=== PATIENT | male | born 1930 | race Caucasian/White ===

== ENCOUNTER 2017-01-02 17:46 | Inpatient (IN) | payer MEDICARE, OTHER ==
[~2017-01-02] VITALS: Ht 175.3 cm; Wt 42.5 kg
[2017-01-02] MEDS ORDERED: MIDAZOLAM DRIP 100 mg/100mL NS 100 ML IV SCH (18:30)
[2017-01-02 18:44] LABS: Albumin 2.1 g/dL (3.4-5.0); BUN/Creatinine Ratio 36.4; Bilirubin, Total 0.4 mg/dL (0.2-1.0); Calcium 9.8 mg/dL (8.5-10.1); Potassium 3.9 mmol/L (3.5-5.1); Total Protein 7.6 g/dL (6.4-8.2)
[2017-01-02] MEDS ORDERED: cefTRIAXone 1GM/50ML D5W 50 ML IV ONE (18:45)
[2017-01-02] MEDS ORDERED: SODIUM CHLORIDE 0.9% 1,000 ML IV ONE ×2 (19:00)
[2017-01-02 19:08] LABS: Lactic Acid 9.5 mmol/L (0.4-2.0)
[2017-01-02] MEDS ORDERED: NOREPINEPHRINE BITARTRATE 250 ML IV ONE (19:12)
[2017-01-02 19:28] LABS: Basophils # (auto) 0 uL; Eosinophils # (auto) 0 uL; Eosinophils % (auto) 0.1 % (0.0-7.0); Hematocrit 36.3 % (41.0-53.0); Hemoglobin 11.5 g/dL (13.5-17.5); Lymphocytes # (auto) 1.6 uL; Lymphocytes % (auto) 12.7 % (10.0-50.0); Mean Corpuscular Hemoglobin 30.5 pg (28.0-32.0); Mean Corpuscular Hgb Conc. 31.8 g/dL (32.0-36.0); Mean Corpuscular Volume 96.1 fL (80.0-100.0); Monocytes # (auto) 0.1 uL; Neutrophils # (auto) 10.9 uL; Neutrophils % (auto) 86.2 % (37.0-80.0); Platelet Count (auto) 430 10^3/uL (140-450); Red Cell Distribution Width 14.3 % (11.6-16.0); SUSPECT VIEW TRANSMISSION; White Blood Cell 12.7 10^3/uL (4.4-10.8)
[2017-01-02] MEDS: NOREPINEPHRINE BITARTRATE 250 ML IV SCH (19:30)
[2017-01-02 19:49] LABS: REFLEX LACTIC ACID YES OR NO YES
[2017-01-02] MEDS ORDERED: PIPERACILLIN-TAZOB 3.375GM 100 ML IV ONE (20:00)
[2017-01-02 20:13] LABS: INR 1.39 (0.9-1.15); Prothrombin Time 14.3 sec (9.37-12.3)
[2017-01-02] MEDS: SODIUM CHLORIDE 0.9% 1,000 ML IV SCH (20:51)
[2017-01-02] MEDS ORDERED: MORPHINE SULF INJ 2 MG/ML SYRINGE 1ML IV PRN (21:00)
[2017-01-02] MEDS ORDERED: LACTULOSE 20Gm/30ML SOLN PO PRN (21:00)
[2017-01-02] MEDS ORDERED: NITROGLYCERIN 0.4 MG SL TAB SL PRN (21:00)
[2017-01-02] MEDS: ENOXAPARIN SOD 30 MG/0.3 ML SYRINGE SC SCH (21:00)
[2017-01-02 21:14] LABS: Lactic Acid 4.5 mmol/L (0.4-2.0)
[2017-01-02] MEDS ORDERED: DEXTROSE (50%) 50ML SYRG IV PRN (21:15)
[2017-01-02 21:37] LABS: REFLEX LACTIC ACID YES OR NO NO
[2017-01-02] MEDS: IPRATROPIUM BROM 0.5 MG/2.5ML INH SOL NEB SCH (22:00)
[2017-01-02] MEDS: ALBUTEROL SULF 2.5 MG/0.5ML(0.5%) NEB SOLN NEB SCH (22:00)
[2017-01-02 22:13] VITALS: BP 82/49
[2017-01-02 22:22] LABS: Urine Bilirubin Negative (Negative); Urine Color Yellow (Yellow); Urine Glucose Normal (Normal); Urine Hyaline Cast MOD /lpf (0 - 2); Urine Ketone Negative (Negative); Urine Mucus FEW (None Seen); Urine Nitrite Negative (Negative); Urine RBC 91 /hpf (0 - 3); Urine Squamous Epithelial Cell MOD /hpf (<5); Urine Urobilinogen Normal (Negative)
[2017-01-02] MEDS: methylPREDNISolone SOD SUCC 125 MG/2 ML VL IV SCH (22:32)
[2017-01-02 23:52] LABS: Urine Blood 2+ /uL (Negative)
[2017-01-03] VITALS (93 sets, daily range): BP systolic 66–143; BP diastolic 35–78
[2017-01-03] MEDS: InsuLIN REG 1unit/0.01ml Soln (100units/ml) SC SCH ×4 (01:40→18:57)
[2017-01-03] MEDS: ALBUTEROL SULF 2.5 MG/0.5ML(0.5%) NEB SOLN NEB SCH ×6 (02:00→22:22)
[2017-01-03] MEDS: IPRATROPIUM BROM 0.5 MG/2.5ML INH SOL NEB SCH ×6 (02:00→22:22)
[2017-01-03 03:53] LABS: Hematocrit 34.1 % (41.0-53.0); Hemoglobin 10.6 g/dL (13.5-17.5); Mean Corpuscular Hemoglobin 29.7 pg (28.0-32.0); Mean Corpuscular Hgb Conc. 31.2 g/dL (32.0-36.0); Mean Corpuscular Volume 95.2 fL (80.0-100.0); Mean Platelet Volume 8.2 fL (7.4-10.4); Platelet Count (auto) 444 10^3/uL (140-450); Red Cell Distribution Width 14.5 % (11.6-16.0); SUSPECT VIEW TRANSMISSION; White Blood Cell 10.5 10^3/uL (4.4-10.8)
[2017-01-03] MEDS: PIPERACILLIN-TAZOB 2.25GM 50 ML IV SCH ×3 (04:00→19:46)
[2017-01-03 04:06] LABS: Myelocytes % 0; Promyelocytes % 0; Reactive Lymphocytes 0
[2017-01-03 04:19] LABS: Albumin 1.7 g/dL (3.4-5.0); BUN/Creatinine Ratio 40.4; Bilirubin, Total 0.4 mg/dL (0.2-1.0); Calcium 8.2 mg/dL (8.5-10.1); Potassium 4.1 mmol/L (3.5-5.1); Total Protein 6.3 g/dL (6.4-8.2)
[2017-01-03 04:48] LABS: Metamyelocytes % 3; Platelet Estimate Adequate; RBC Morphology Normal
[2017-01-03] MEDS: NOREPINEPHRINE BITARTRATE 250 ML IV SCH ×2 (06:10→21:17)
[2017-01-03] MEDS: ACCU-CHEK COMFORT CURVE STRIP VI SCH ×5 (06:17→23:51)
[2017-01-03] MEDS ORDERED: SODIUM BICARBONATE 50ML VIAL 50 ML in SOD CHL 0.45% 1,000 ML IV SCH (08:30)
[2017-01-03] MEDS ORDERED: SODIUM BICARBONATE 50ML VIAL 50 ML in D5W 5% 1,000 ML IV SCH (08:45)
[2017-01-03] MEDS ORDERED: cefTRIAXone 1GM/50ML D5W 50 ML IV SCH (09:00)
[2017-01-03] MEDS: PANTOPRAZOLE SODIUM 40 MG/10 ML VIAL IV SCH (10:40)
[2017-01-03] MEDS: methylPREDNISolone SOD SUCC 125 MG/2 ML VL IV SCH ×2 (10:40→22:04)
[2017-01-03] MEDS: SODIUM CHLORIDE 0.9% 1,000 ML IV SCH (10:41)
[2017-01-03] MEDS: ALBUMIN 25% 100 ML IV SCH ×2 (13:28→22:05)
[2017-01-03] MEDS: SOD CHL 0.45% 1,000 ML IV SCH ×2 (13:28→23:05)
[2017-01-03] MEDS ORDERED: LEVETIRACETAM INJ 1,000 MG in SODIUM CHL 0.9% 100 ML IV ONE (18:00)
[2017-01-03] MEDS: BACITRACIN TOP OINT 1 UD PKG TOP SCH (18:43)
[2017-01-03] MEDS: MIDAZOLAM DRIP 100 mg/100mL NS 100 ML IV SCH (20:00)
[2017-01-03] MEDS: ENOXAPARIN SOD 30 MG/0.3 ML SYRINGE SC SCH (21:23)
[2017-01-04] VITALS (103 sets, daily range): BP systolic 86–162; BP diastolic 38–61
[2017-01-04] MEDS: ALBUTEROL SULF 2.5 MG/0.5ML(0.5%) NEB SOLN NEB SCH ×5 (02:25→18:53)
[2017-01-04] MEDS: IPRATROPIUM BROM 0.5 MG/2.5ML INH SOL NEB SCH ×5 (02:25→18:53)
[2017-01-04 03:44] LABS: DEFINITIVE VIEW TRANSMISSION; Hematocrit 22.9 % (41.0-53.0); Hemoglobin 7.3 g/dL (13.5-17.5); Mean Corpuscular Hemoglobin 29.8 pg (28.0-32.0); Mean Corpuscular Hgb Conc. 31.8 g/dL (32.0-36.0); Mean Corpuscular Volume 93.6 fL (80.0-100.0); Mean Platelet Volume 8.1 fL (7.4-10.4); Platelet Count (auto) 196 10^3/uL (140-450); White Blood Cell 6.6 10^3/uL (4.4-10.8)
[2017-01-04] MEDS: PIPERACILLIN-TAZOB 2.25GM 50 ML IV SCH ×2 (04:06→11:52)
[2017-01-04 04:21] LABS: Metamyelocytes % 0; Myelocytes % 0; Promyelocytes % 0; Reactive Lymphocytes 0
[2017-01-04 04:34] LABS: Albumin 2.3 g/dL (3.4-5.0); BUN/Creatinine Ratio 38.3; Bilirubin, Total 0.5 mg/dL (0.2-1.0); Calcium 8.2 mg/dL (8.5-10.1); Potassium 3.2 mmol/L (3.5-5.1); Total Protein 5.8 g/dL (6.4-8.2)
[2017-01-04] MEDS: SOD CHL 0.45% 1,000 ML IV SCH ×2 (04:45→12:41)
[2017-01-04 04:56] LABS: RBC Morphology Normal
[2017-01-04 05:54] LABS: Platelet Estimate Adequate
[2017-01-04] MEDS: InsuLIN REG 1unit/0.01ml Soln (100units/ml) SC SCH ×4 (06:00→17:42)
[2017-01-04] MEDS ORDERED: LEVETIRACETAM INJ 500 MG in SODIUM CHL 0.9% 100 ML IV SCH (06:00)
[2017-01-04] MEDS: ACCU-CHEK COMFORT CURVE STRIP VI SCH ×3 (06:09→17:42)
[2017-01-04] MEDS: ALBUMIN 25% 100 ML IV SCH ×2 (06:09→13:40)
[2017-01-04] MEDS ORDERED: MUPIROCIN 2% OINT 22GM ONE (10:04)
[2017-01-04] MEDS: PANTOPRAZOLE SODIUM 40 MG/10 ML VIAL IV SCH (10:04)
[2017-01-04] MEDS: methylPREDNISolone SOD SUCC 125 MG/2 ML VL IV SCH (10:04)
[2017-01-04] MEDS ORDERED: MUPIROCIN 2% OINT 22GM EACHNOSTRI STA (10:12)
[2017-01-04] MEDS: BACITRACIN TOP OINT 1 UD PKG TOP SCH (10:13)
[2017-01-04] MEDS: MIDAZOLAM DRIP 100 mg/100mL NS 100 ML IV SCH (11:09)
[2017-01-04] MEDS ORDERED: SODIUM CHL 0.9% IV SCH (18:00)
[2017-01-04] MEDS ORDERED: LEVETIRACETAM IV SCH (18:00)
[2017-01-04] MEDS ORDERED: MORPHINE SULF INJ 2 MG/ML SYRINGE 1ML IV ONE (18:15)
[2017-01-04] MEDS ORDERED: MORPHINE SULFATE 4 MG/ML SYRG IV ONE (21:00)
[2017-01-04] MEDS ORDERED: MORPHINE SULFATE 4 MG/ML SYRG ONE (21:00)
[2017-01-04] MEDS ORDERED: LORazepam 2MG/ML-1ML VIAL IV PRN (21:15)
[2017-01-05] VITALS: BP 97/39
[2017-01-05] MEDS ORDERED: MORPHINE SULFATE 4 MG/ML SYRG IV PRN
[2017-01-05 00:15] VITALS: BP 86/42
[2017-01-05 00:30] VITALS: BP 88/39
[2017-01-05 00:45] VITALS: BP 79/35
[2017-01-05 01:00] VITALS: BP 83/41
== END 2017-01-05 06:36 | disposition expired | DRG 871 ==
LOC: ER 17:56 → TELE 17:57 → ICU WEST 17:58
PROVIDERS: ADMIT Family Medicine; ATTEND Internal Medicine Pulmonary Disease
PROC: 5A12012 Performance of Cardiac Output, Single, Manual (ICD-10-PCS; principal; 2017-01-02)
PROC: 0W9930Z Drainage of Right Pleural Cavity with Drainage Device, Percutaneous Approach (ICD-10-PCS; 2017-01-02)
PROC: 5A1945Z Respiratory Ventilation, 24-96 Consecutive Hours (ICD-10-PCS; 2017-01-02)
DX: A41.9 Sepsis, unspecified organism (principal); R65.21 Severe sepsis with septic shock; J18.9 Pneumonia, unspecified organism; E43 Unspecified severe protein-calorie malnutrition; J96.90 Respiratory failure, unspecified, unspecified whether with hypoxia or hypercapnia; N17.0 Acute kidney failure with tubular necrosis; E87.0 Hyperosmolality and hypernatremia; J93.9 Pneumothorax, unspecified; J44.0 Chronic obstructive pulmonary disease with (acute) lower respiratory infection; G93.1 Anoxic brain damage, not elsewhere classified; Z68.1 Body mass index [BMI] 19.9 or less, adult; I46.9 Cardiac arrest, cause unspecified; D64.9 Anemia, unspecified; I12.9 Hypertensive chronic kidney disease with stage 1 through stage 4 chronic kidney disease, or unspecified chronic kidney disease; J84.10 Pulmonary fibrosis, unspecified; F03.90 Unspecified dementia, unspecified severity, without behavioral disturbance, psychotic disturbance, mood disturbance, and anxiety; F17.200 Nicotine dependence, unspecified, uncomplicated; G25.3 Myoclonus; I67.2 Cerebral atherosclerosis; N18.9 Chronic kidney disease, unspecified; Z82.3 Family history of stroke; Z85.828 Personal history of other malignant neoplasm of skin; Z86.73 Personal history of transient ischemic attack (TIA), and cerebral infarction without residual deficits
CPT/HCPCS: 36415; 36600; 51702; 70450; 71010; 71250; 76775; 80053; 80061; 81001; 82570; 82805; 82962; 83036; 83605; 83735; 84156; 84300; 84484; 85007; 85025; 85027; 85610; 85730; 86850; 86900; 86901; 86920; 87040; 87081; 87086; 92950; 93005; 94002; 94003; 94640; 96365; 96366; 96367; 99291; C9113; G0434; J0696; J1815; J2543; J3490